=== PATIENT | male | born 1965 | race Caucasian/White ===

== ENCOUNTER 2016-08-22 10:35 | Day surgery (SDC) | payer OTHER ==
[~2016-08-22] VITALS: Ht 185.4 cm; Wt 108.9 kg
[~2016-08-22 10:35] MED LIST: 0.9% Sodium Chloride 1,000 ML IV PRN; ADAL40PE SQ; BUPR150T12 PO; METH2.5T PO; NAPR220C11 PO; OMEP40CA36 PO; SERT100T9 PO; SIMV10TA4 PO; Sodium Chloride LOK Flush 10 mL Syringe IV PRN; fentaNYL-PF 50 mCg/mL 2 mL Inj IVPUSH PRN
[2016-08-22 10:52] VITALS: BP 123/76; PULSE 85; RESP 14; O2SAT 97
[2016-08-22 11:39] VITALS: BP 106/73; PULSE 65; RESP 14; O2SAT 94
[2016-08-22 11:48] VITALS: BP 106/72; PULSE 72; RESP 16; O2SAT 97
[2016-08-22 11:57] VITALS: BP 111/70; PULSE 74; O2SAT 97
--- NOTE | 2016-08-22 14:11 | ENDO ---
[address] [address] ENDOSCOPY PROCEDURE PATIENT: ZOE DANIELS : 1965 MR#: [id number] ADMIT: 08/22/2016 JOB ID: [id number] DATE: 08/22/2016 TYPE OF OPERATION: Colonoscopy with biopsy. PREOPERATIVE DIAGNOSIS(ES): Colorectal cancer screening. POSTOPERATIVE DIAGNOSIS(ES): A 2 mm rectal polyp, removed by cold biopsy forceps. ANESTHESIA: 1. Fentanyl 125 mcg. 2. Versed 6 mg IV administered. COMPLICATIONS: None. BLOOD LOSS: Minimal. DESCRIPTION OF PROCEDURE: After risks and benefits were explained to the patient, informed consent was obtained. After anesthesia administered, colonoscope was then inserted from the rectum to the cecum. Mucosa carefully examined. Prep of the patient was excellent. After procedure was done, the scope was withdrawn and the procedure terminated. FINDINGS: Upon inspection of the anus, no masses, hemorrhoids, ulcers, fissures that were seen. Throughout the entire examination, there was a 2 mm rectal polyp, removed by cold biopsy forceps. No polyps or masses were seen. Retroflexion was normal. IMPRESSION: A 2 mm rectal polyp removed by cold biopsy forceps. RECOMMENDATION: Await pathology results. If tubular adenoma, then repeat colonoscopy in five years.
--- NOTE | 2016-08-25 14:10 | PATH ---
SURGICAL PATHOLOGY Attending Physician:Alfonzo Mcintosh MD CASE STATUS: Signed Out PATIENT NAME: ZOE DANIELS PID: [id number] : 1965 DATE COLLECTED:08/22/2016 21:08 SPECIMEN: Rectum, Biopsy CLINICAL HISTORY: SCREENING, COLON POLYP 1). RECTAL POLYP FINAL DIAGNOSIS: 1.RECTAL POLYP: HYPERPLASTIC POLYP. ICD10 D12.6 GROSS DESCRIPTION: The specimen is received in formalin, labeled with the patient's name, sublabeled as rectal polyp, and consists of a fragment of stevens-doss, glistening, semi-translucent tissue (0.5 x 0.4 x 0.2 cm). Section code: (A) intact tissue. Specimen entirely submitted. ([id number]) MICRO DESCRIPTION: See diagnosis. ICD-9 CODES: CPT CODES: 1: 74668 Electronically Signed Out Benjie Berry MD [facility]ology [facility] [address], [place] [address] Technical component performed at [facility], [address] [place] [address] Ave[address], [place], [address]
== END 2016-08-22 23:59 | disposition home or self-care (01) ==
LOC: END 10:35
PROVIDERS: ATTEND Internal Medicine Gastroenterology
DX: Z12.11 Encounter for screening for malignant neoplasm of colon (principal); K62.1 Rectal polyp; Z79.899 Other long term (current) drug therapy; L40.50 Arthropathic psoriasis, unspecified
CPT/HCPCS: 45380; 88305; G0500; J2250; J3010; J7030